=== PATIENT | female | born 1940 | race Hispanic/Latino ===

== ENCOUNTER → 2017-07-27 | Outpatient (CLI) | payer MEDICARE | END | disposition home or self-care (01) | LOC: SHCH 13:50 | PROVIDERS: ATTEND Internal Medicine Cardiovascular Disease | DX: I08.3 Combined rheumatic disorders of mitral, aortic and tricuspid valves (principal); Z95.0 Presence of cardiac pacemaker | CPT/HCPCS: 93306 ==

== ENCOUNTER 2018-02-22 08:44 | Day surgery (SDC) | payer MEDICARE ==
[2018-02-20 15:20] VITALS: BP 128/68
[2018-02-20 15:27] LABS: APPEARANCE,URINE Clear (CLEAR); BASOPHILS % (AUTO) 0.8 % (0.0-5.0); BILIRUBIN,URINE Negative (NEGATIVE); COLOR,URINE Yellow (YELLOW); GLUCOSE, URINE (UA) Negative (NEGATIVE); HEMATOCRIT 36.1 % (36-48); KETONES,URINE Negative (NEGATIVE); LEUKOCYTE ESTERASE ,URINE Negative (NEGATIVE); LYMPHOCYTES % (AUTO) 20.9 % (21.0-51.0); MEAN CORPUSCULAR HEMOGLOBIN 29.1 pg (27.0-33.0); MEAN CORPUSCULAR HGB CONC 33.5 g/dL (32.0-36.0); MONOCYTES % (AUTO) 6.1 % (3.0-13.0); NEUTROPHILS % (AUTO) 70.2 % (40.0-77.0); NITRATE,URINE Negative (NEGATIVE); OCCULT BLOOD,URINE Trace (NEGATIVE); PH,URINE 6.5 (5.0-8.0); PLATELET COUNT (AUTO) 180 K/uL (130-400); PROTEIN,URINE Negative (NEGATIVE); RED BLOOD CELL COUNT(AUTO) 4.14 MIL/uL (4.00-5.50); RED CELL DISTRIBUTION WIDTH 14.8 % (11.0-15.5); UROBILINOGEN,URINE 0.2 mg/dL (0.2-1.0); WHITE BLOOD COUNT (AUTO) 6.4 K/uL (4.8-10.8)
[2018-02-20 15:34] LABS: CREATININE 0.8 mg/dL (0.5-1.5); POTASSIUM 4.3 mmol/L (3.5-5.1)
[2018-02-20 15:51] LABS: BACTERIA,URINE Rare /HPF (None Seen); RBC,URINE 0-1 /HPF (0-1); SQUAMOUS EPITHELIAL CELL,UR Rare /HPF (0-2); WBC,URINE 0-1 /HPF (0-1)
[2018-02-20 16:10] LABS: INR 1.41 (0.85-1.15); PARTIAL THROMBOPLASTIN TIME 40.4 SEC (26.3-35.5); PROTHROMBIN TIME 14.7 SEC (9.6-11.6)
[~2018-02-22] VITALS: Ht 154.9 cm; Wt 65.0 kg
[2018-02-22] VITALS (12 sets, daily range): BP systolic 116–142; BP diastolic 56–76
[~2018-02-22 08:44] MED LIST: ATOR10TA69 PO; DIGO125T87 PO; ERGO500014 PO; ISOS30TA6 PO; LEVO75TA10 PO; METO100T14 PO; RIVA20TA PO; SODIUM CHLORIDE 0.9% 500ML 500 ML IV SCH; TRAM50TA4 PO; UBID100C10 PO
[2018-02-22] MEDS ORDERED: SODIUM CHLORIDE 0.9% 1000ML 1,000 ML IV ONE (09:50)
[2018-02-22] MEDS ORDERED: LIDOCAINE HCL-MPF 2% 5ML VIAL ONE (11:43)
[2018-02-22] MEDS ORDERED: NITROGLYCERIN 5 MG/ML 10 ML VIAL IV ONE (11:44)
[2018-02-22] MEDS ORDERED: IOHEXOL-350 50ML VIAL IV ONE (11:44)
[2018-02-22] MEDS ORDERED: HEPARIN SODIUM 1000UNIT/ML 10ML VIAL ONE (11:44)
[2018-02-22] MEDS ORDERED: IOHEXOL 350 MG/ML 100ML INFUS..BTL IV ONE (11:44)
[2018-02-22] MEDS ORDERED: MIDAZOLAM HCL 1 MG/ML 2ML VIAL ONE (11:52)
[2018-02-22] MEDS ORDERED: MEPERIDINE-PF 25 MG/ML SYG ONE (11:53)
[2018-02-22] MEDS ORDERED: SODIUM CHLORIDE 0.9% 1000ML 1,000 ML IV SCH (12:49)
[2018-02-22] MEDS ORDERED: ACETAMINOPHEN-CODEINE 300/30MG TAB PO PRN ×2 (13:00)
== END 2018-02-22 17:19 | disposition home or self-care (01) ==
LOC: DAH 08:44
PROVIDERS: ATTEND Internal Medicine Cardiovascular Disease
DX: I34.0 Nonrheumatic mitral (valve) insufficiency (principal); I25.10 Atherosclerotic heart disease of native coronary artery without angina pectoris; I51.9 Heart disease, unspecified; I10 Essential (primary) hypertension; E78.5 Hyperlipidemia, unspecified; E03.9 Hypothyroidism, unspecified; I25.2 Old myocardial infarction; F15.90 Other stimulant use, unspecified, uncomplicated; E66.9 Obesity, unspecified; Z68.27 Body mass index [BMI] 27.0-27.9, adult; Z98.890 Other specified postprocedural states; Z79.01 Long term (current) use of anticoagulants; Z79.1 Long term (current) use of non-steroidal anti-inflammatories (NSAID); Z79.899 Other long term (current) drug therapy
CPT/HCPCS: 36415 ×2; 71045; 80048; 80162; 81001; 85025; 85610; 85730; 93005; 93458; A4606; C1760; C1894; J1644; J2175; J2250; J3490 ×2; J7030; Q9965; Q9967 ×2; 99156; 99157

== ENCOUNTER → 2018-06-23 | Outpatient (CLI) | payer MEDICARE ==
[~2018-06-23] MED LIST changes: +AMIO200T44 PO; +FURO20TA6 PO; -ISOS30TA6 PO; -METO100T14 PO; +METO25 PO; -SODIUM CHLORIDE 0.9% 500ML 500 ML IV SCH
== END | disposition home or self-care (01) ==
LOC: SHCH 15:30
PROVIDERS: ATTEND Internal Medicine Cardiovascular Disease
DX: I08.2 Rheumatic disorders of both aortic and tricuspid valves (principal); I11.9 Hypertensive heart disease without heart failure; R11.10 Vomiting, unspecified; Z95.0 Presence of cardiac pacemaker
CPT/HCPCS: 93306

== ENCOUNTER → 2019-07-20 | Outpatient (CLI) | payer MEDICARE ==
[~2019-07-20] MED LIST changes: +DIGO125T71 PO; -DIGO125T87 PO
== END | disposition home or self-care (01) ==
LOC: SHCH 15:38
PROVIDERS: ATTEND Internal Medicine Cardiovascular Disease
DX: R09.89 Other specified symptoms and signs involving the circulatory and respiratory systems (principal)
CPT/HCPCS: 93306

== ENCOUNTER → 2019-09-17 | Outpatient (CLI) | payer MEDICARE | END | disposition home or self-care (01) | LOC: RAH 11:38 | PROVIDERS: ATTEND Family Medicine | DX: N28.1 Cyst of kidney, acquired (principal) | CPT/HCPCS: 76770 ==

== ENCOUNTER → 2020-01-29 | Outpatient (CLI) | payer MEDICARE | END | disposition home or self-care (01) | LOC: RAH 09:54 | PROVIDERS: ATTEND Family Medicine | DX: I08.8 Other rheumatic multiple valve diseases (principal); R94.31 Abnormal electrocardiogram [ECG] [EKG] | CPT/HCPCS: 93306; 93356 ==

== ENCOUNTER → 2020-07-16 | Outpatient (CLI) | payer MEDICARE | END | disposition home or self-care (01) | LOC: SHCH 08:50 | PROVIDERS: ATTEND Internal Medicine Cardiovascular Disease | DX: I08.3 Combined rheumatic disorders of mitral, aortic and tricuspid valves (principal); I27.20 Pulmonary hypertension, unspecified | CPT/HCPCS: 93306; 93356 ==

== ENCOUNTER → 2023-08-08 | Outpatient (CLI) | payer OTHER, MEDICARE ==
[2023-08-08] MEDS: REGADENOSON 0.4 MG/5 ML PF SYG IVP ONE (14:50)
== END ==
LOC: SHCH 08:53
PROVIDERS: ATTEND Internal Medicine Cardiovascular Disease
DX: I25.5 Ischemic cardiomyopathy (principal); I25.119 Atherosclerotic heart disease of native coronary artery with unspecified angina pectoris
CPT/HCPCS: 78452; 96374; 93017; J2785; A9500 ×2

== ENCOUNTER → 2024-07-14 | Outpatient (CLI) | payer OTHER, MEDICARE ==
--- NOTE | 2024-07-16 13:50 | HMCSR ---
APPROVED REPORT EXAM: Two-dimensional and M-mode echocardiogram with Doppler and color Doppler. INDICATION ICD: R06.02 Shortness of breath 2D Dimensions IVSd1.2 (0.7-1.1cm)LVEF(%)51.0 (>50%)LVEF(%, simp.)59 % LVDd4.3 (3.8-5.6cm)FS(%)26 % PWd1.1 (0.7-1.1cm)LA (2D)5.1 (1.6-4.0cm) IVSs1.3 cmAo Root(2D)3.5 (2.0-3.7cm) LVDs3.2 (2.5-4.0cm)LVOT diam1.9 (1.8-2.4cm) PWs1.6 cm Aortic Valve AoV Vmax2.0 m/Jaciel Peak GR16.7 mmHgLVOT Vmax1.2 m/s AoV VTI0.3 mAo Mean GR7.9 mmHgLVOT VTI0.28 m TINA (VMAX)2.4 cm2Al P1/2T436 msAVA (VTI) 2.4 cm2 Mitral Valve MV E Kyol185.9 cm/sDECEL Voiy463 msMV Peak GR14 mmHg MV A [place]395.3 cm/sP 1/2 T114 msMV Mean GR8 mmHg E/A ratio1.2MVA (PHT)1.9 cm2 TDI E/E' Buvzcd48.5E/E' Pwcaamo89.5 Medial E' Peak V6.00 cm/sLateral E' Peak V6.00 cm/s Pulmonary Valve PV Vmax0.9 m/s Tricuspid Valve TR Vmax2.1 m/sRAP (EST) 15 gaNqOXPX30.5 mmHg TR Peak GR17.5 mmHg Left Ventricle The left ventricle is normal size. There is normal left ventricular wall thickness. The LVEF is 50%. No left ventricle thrombus noted on this study. The left ventricular diastolic function is normal. Right Ventricle The right ventricle is severely dilated. Right ventricular systolic function is borderline reduced. Atria The left atrium is severely dilated. The right atrium is severely dilated. Aortic Valve Aortic valve is trileaflet and opens well. Moderate aortic regurgitation is present. There is no aort ic valvular stenosis. Mitral Valve Mitral annular calcification is moderate. There is trace of mitral valve regurgitation noted.. There is moderate calcific mitral valve stenosis. peak gradient 15mmHg, mean gradient 9mmHg. MVA PHT 1.9 cm . Tricuspid Valve The tricuspid valve leaflets are mildly thickened. There is severe tricuspid valve regurgitation note d. Pulmonic Valve The pulmonary valve is normal in structure. There is mild to moderate valvular regurgitation. Great Vessels The aortic root is normal in size, with thickened and echogenic clifton. IVC is severely dilated and co llapses <50% with inspiration. Pericardium There is no pericardial effusion. Conclusion The left ventricle is normal size. The LVEF is 50%. The right ventricle is severely dilated. Right ventricular systolic function is borderline reduced. The left atrium is severely dilated. The right atrium is severely dilated. Aortic valve is trileaflet and opens well. Moderate aortic regurgitation is present. Mitral annular calcification is moderate. There is trace of mitral valve regurgitation noted.. There is moderate calcific mitral valve stenosis. peak gradient 15mmHg, mean gradient 9mmHg. MVA PHT 1.9 cm. There is severe tricuspid valve regurgitation noted. There is mild to moderate valvular regurgitation. The aortic root is normal in size, with thickened and echogenic clifton. IVC is severely dilated and collapses <50% with inspiration. There is no pericardial effusion.
== END | disposition home or self-care (01) ==
LOC: SHCH 11:04
PROVIDERS: ATTEND Internal Medicine Cardiovascular Disease
DX: I08.8 Other rheumatic multiple valve diseases (principal); R06.02 Shortness of breath; V89.2XXA Person injured in unspecified motor-vehicle accident, traffic, initial encounter; Y93.89 Activity, other specified; Y92.89 Other specified places as the place of occurrence of the external cause; Y99.8 Other external cause status
CPT/HCPCS: 93306

== ENCOUNTER → 2025-03-20 | Outpatient (CLI) | payer OTHER, MEDICAID ==
[~2025-03-20] VITALS: Ht 143.5 cm; Wt 62.8 kg
[~2025-03-20] MED LIST changes: +ASPI-1005 PO; +FURO40TA5 PO; +LEVO88CA5 PO; +METO-391 PO; -UBID100C10 PO; +UBID100C51 PO
[2025-03-20 10:41] VITALS: BP 147/85; PULSE 75; RESP 15; TEMP 97.7
[2025-03-20 10:56] LABS: IMMATURE GRANULOCYTE ABSOLUTE 0.02 K/uL (0-1); NUCLEATED RED BLOOD CELLS 0.0 % (0.0-0.19); PLATELET COUNT (AUTO) 253 K/uL (130-400); RED BLOOD CELL COUNT(AUTO) 3.31 MIL/uL (4.00-5.50); RED CELL DISTRIBUTION WIDTH 22.5 % (11.0-15.5); WHITE BLOOD COUNT (AUTO) 4.5 K/uL (4.8-10.8)
[2025-03-20 11:04] LABS: CREATININE 0.7 mg/dL (0.5-1.0); GLOMERULAR FILTR. RATE CALC 84.0 mL/min (>90); GLUCOSE,RANDOM 92.0 mg/dL (70-105); SODIUM SERUM 130.0 mmol/L (136-145); UREA NITROGEN, BLOOD 10.0 mg/dL (7-18)
[2025-03-20 11:28] LABS: INR 2.24 (0.85-1.15)
--- NOTE | 2025-03-20 11:40 | EKG ---
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: [id number] : 1940 Requested By: Muriel INTERIANO Order Number: [id number] Reading MD: Ann Ramírez Measurements Intervals Point Comfort Rate: 79 P: 0 KS: 0 QRS: 0 QRSD: 136 T: 35 QT: 423 QTc: 484 Interpretive Statements Atrial fibrillation Right bundle branch block Probable lateral infarct, old Compared to ECG 04/21/2018 12:39:55 Right bundle-branch block now present Myocardial infarct finding now present Ventricular-paced complex(es) or rhythm no longer present Electronically Signed On 03-21-2025 12:32:48 TELEMARKETING REPRESENTATIVE by Ann Ramírez Please click the below link to view image of tracing.
--- NOTE | 2025-03-21 12:19 | NUR ---
REPORT REPORTED CBC/BMP/COAGS TO [employer] [place] NP. RECEIVED ORDERS TO CANCEL AND TO HAVE PT FOLLOW UP WITH AUT[employer] DR MAN AND THEN FOLLOW WITH DR INTERIANO. PTS CAREGIVER/PROVIDER NOTIFIED
== END ==
LOC: DAH 09:54 → EDSTATUS 10:00
PROVIDERS: ATTEND Internal Medicine Cardiovascular Disease
DX: Z01.818 Encounter for other preprocedural examination (principal); I49.5 Sick sinus syndrome; I48.20 Chronic atrial fibrillation, unspecified
CPT/HCPCS: 36415; 80048; 85025; 85610; 85730; 93005